=== PATIENT | male | born 2000 | race African-American/Black ===

== ENCOUNTER 2020-02-22 02:24 | Emergency (ER) | payer OTHER ==
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
[2020-02-22 03:38] VITALS: BP 119/64; PULSE 80; TEMP 97.1; BMI 23.6
== END 2020-02-22 03:40 | disposition home or self-care (01) ==
LOC: JER 02:24
DX: R05 Cough (principal)
CPT/HCPCS: 99282-25